=== PATIENT | female | born 1935 | race African-American/Black ===

== ENCOUNTER 2016-06-27 20:29 | Emergency (ER) | payer OTHER, BC ==
[~2016-06-27] VITALS: Ht 167.6 cm; Wt 76.2 kg
[2016-06-27] MEDS ORDERED: ZOFRAN ODT4 MG PO (22:21)
[2016-06-27] MEDS ORDERED: BENTYL 20 MG TA20 M1 PO (22:21)
[2016-06-27 22:32] VITALS: BP 108/70
== END 2016-06-27 22:34 | disposition home or self-care (01) ==
LOC: ER 20:29
DX: R10.9 Unspecified abdominal pain (principal); R19.7 Diarrhea, unspecified; F03.90 Unspecified dementia, unspecified severity, without behavioral disturbance, psychotic disturbance, mood disturbance, and anxiety; E11.9 Type 2 diabetes mellitus without complications; F32.9 Major depressive disorder, single episode, unspecified; G47.00 Insomnia, unspecified

== ENCOUNTER 2018-06-17 17:24 | Emergency (ER) | payer OTHER, BC ==
[~2018-06-17] VITALS: Ht 167.6 cm; Wt 74.8 kg
[~2018-06-17 17:24] MED LIST: BENTYL 20 MG TA20 M1 PO; ZOFRAN ODT4 MG PO
[2018-06-17 17:58] LABS: ABSOLUTE NEUTROPHILS 7.7 thou/uL (1.4-8.2); BASOPHILS 0.2 % (0.0-2.0); HEMATOCRIT 42.7 % (37.0-47.0); HEMOGLOBIN 14.1 gm/dL (12.0-15.0); LYMPHOCYTES 1.7 % (24.0-44.0); MCH 29.2 pg (26.0-34.0); MCHC 33.1 g/dL (28.0-37.0); MCV 88.4 fL (80.0-100.0); MONOCYTES 3.9 % (1.0-8.0); PLATELET COUNT 185 thou/uL (150-400); POLYS 94.2 % (36.0-66.0); RBC 4.83 mil/uL (4.20-5.00); RDW 13.6 % (10.5-14.5); WBC 8.2 thou/uL (4.0-11.0)
[2018-06-17 18:02] LABS: CALCIUM 9.8 mg/dL (8.5-10.1); CREATININE 1.1 mg/dL (0.6-1.0); POTASSIUM 3.9 mmol/L (3.5-5.1)
[2018-06-17 18:08] LABS: ALBUMIN 3.9 g/dL (3.4-5.0); TOTAL BILIRUBIN 0.5 mg/dL (<0.1-1.0); TOTAL PROTEIN 8.5 g/dL (6.4-8.2)
[2018-06-17 19:49] LABS: URINE BLOOD NEGATIVE (Negative); URINE CLARITY CLEAR; URINE COLOR YELLOW; URINE GLUCOSE-RANDOM* NEGATIVE (Negative); URINE KETONES 2+ (Negative); URINE LEUKOCYTES-REFLEX NEGATIVE (Negative); URINE NITRITE-REFLEX NEGATIVE (Negative); URINE PROTEIN (DIPSTICK) TRACE (Negative); URINE SPECIFIC GRAVITY >= 1.030 (1.005-1.035); URINE UROBILINOGEN 0.2 E.U./dl (0.2-1.0)
[2018-06-17 19:52] LABS: ICTOTEST (BILI CONFIRMATORY) Negative (Negative); URINE BILIRUBIN NEGATIVE (Negative)
[2018-06-17] MEDS ORDERED: ZOFRAN ODT4 MG PO (20:48)
[2018-06-17 21:05] VITALS: BP 133/59
== END 2018-06-17 21:05 | disposition home or self-care (01) ==
LOC: ER 17:24
PROVIDERS: Emergency Medicine; Student in an Organized Health Care Education/Training Program
DX: R19.7 Diarrhea, unspecified (principal); R11.2 Nausea with vomiting, unspecified; R10.33 Periumbilical pain; E11.9 Type 2 diabetes mellitus without complications; F32.9 Major depressive disorder, single episode, unspecified; G47.00 Insomnia, unspecified; F03.90 Unspecified dementia, unspecified severity, without behavioral disturbance, psychotic disturbance, mood disturbance, and anxiety

== ENCOUNTER 2019-03-23 20:50 | Emergency (ER) | payer OTHER, BC ==
[~2019-03-23] VITALS: Ht 167.6 cm; Wt 77.1 kg
[2019-03-23 21:30] LABS: ABSOLUTE NEUTROPHILS 2.6 thou/uL (1.4-8.2); BASOPHILS 0.7 % (0.0-2.0); EOSINOPHILS 2.1 % (0.0-3.0); HEMATOCRIT 36.6 % (37.0-47.0); LYMPHOCYTES 23.3 % (24.0-44.0); MCH 29.6 pg (26.0-34.0); MCHC 32.8 g/dL (28.0-37.0); MCV 90.4 fL (80.0-100.0); MONOCYTES 10.9 % (1.0-8.0); PLATELET COUNT 176 thou/uL (150-400); RBC 4.05 mil/uL (4.20-5.00); WBC 4.2 thou/uL (4.0-11.0)
[2019-03-23 21:46] LABS: ANION GAP 7 mmol/L (7-16); BUN 30 mg/dL (7-18); CALCIUM 9.8 mg/dL (8.5-10.1); CHLORIDE 104 mmol/L (98-107); CO2 29 mmol/L (21-32); CREATININE 1.5 mg/dL (0.6-1.0); GLUCOSE 133 mg/dL (74-106); POTASSIUM 4.3 mmol/L (3.5-5.1); SODIUM 140 mmol/L (136-145); TROPONIN-I <0.06 ng/mL (<0.06)
[2019-03-23 22:19] LABS: URINE BILIRUBIN NEGATIVE (Negative); URINE BLOOD NEGATIVE (Negative); URINE CLARITY CLEAR; URINE COLOR YELLOW; URINE GLUCOSE-RANDOM* NEGATIVE (Negative); URINE KETONES NEGATIVE (Negative); URINE LEUKOCYTES-REFLEX TRACE (Negative); URINE NITRITE-REFLEX NEGATIVE (Negative); URINE PROTEIN (DIPSTICK) NEGATIVE (Negative); URINE UROBILINOGEN 0.2 E.U./dl (0.2-1.0)
[2019-03-23 22:50] VITALS: BP 175/86
--- NOTE | 2019-03-24 08:10 | EKG ---
[place] [address] [facility] [place] [address] ELECTROCARDIOGRAM REPORT Name: COLLIN MUIR Room #: [facility]#: [id number] Admission: 03/23/19 Attend Phys: Discharge: 03/23/19 Date of : 33 Report #: [id number] THIS REPORT FOR: //name// [facility] ED Test Date: 2019-03-23 Test Time: 21:31:30 Pat Name: COLLIN MUIR Department: Room: Gender: F Waitress: DKENDRICK1 : 1935 Requested By: Vivek Horn Order Number: [id number] MD: Romario Cooper Measurements Intervals [place] Rate: 69 P: 35 WV: 214 QRS: -12 QRSD: 96 T: 52 QT: 452 QTc: 485 Interpretive Statements Sinus rhythm Borderline prolonged [place] interval No previous ECG available for comparison Electronically Signed On 03-24-2019 8:09:52 SALES PERSON by Romario Cooper [email or web address] <ELECTRONICALLY SIGNED> By: Romario Cooper MD, [facility] 03/24/19 [phone] Romario Cooper MD, FACC /EPI
== END 2019-03-23 22:50 | disposition home or self-care (01) ==
LOC: ER 20:50
PROVIDERS: Nurse Practitioner
DX: I10 Essential (primary) hypertension (principal); E11.9 Type 2 diabetes mellitus without complications; F03.90 Unspecified dementia, unspecified severity, without behavioral disturbance, psychotic disturbance, mood disturbance, and anxiety; F32.9 Major depressive disorder, single episode, unspecified; Z88.1 Allergy status to other antibiotic agents

== ENCOUNTER 2019-05-15 10:23 | Emergency (ER) | payer OTHER, BC ==
[~2019-05-15] VITALS: Ht 170.2 cm; Wt 80.7 kg
--- NOTE | ~2019-05-15 | EKG ---
[facility] [place] [address] ELECTROCARDIOGRAM REPORT Name: WOODCOLLIN Room #: [facility].#: [id number] Admission: 05/15/19 Attend Phys: Discharge: 05/15/19 Date of : 33 Report #: [id number] THIS REPORT FOR: cc: Addie Hunter MD, Nora P. MD Epiphany, Epiphany MD ~ THIS REPORT FOR: //name// [facility] ED Test Date: 2019-05-15 Test Time: 10:41:27 Pat Name: COLLIN MUIR Department: Room: Gender: F Director [employer]: KAMILA : 1935 Requested By: Ruth Gann Order Number: [id number] MD: Measurements Intervals [place] Rate: 54 P: 57 LA: 214 QRS: -5 QRSD: 104 T: 57 QT: 541 QTc: 513 Interpretive Statements Sinus rhythm Borderline prolonged [place] interval Prolonged QT interval No previous ECG available for comparison [email or web address] By: 1041 1041 Epiphany Epiphany, /EPI
[2019-05-15 11:58] LABS: ABSOLUTE NEUTROPHILS 3.1 thou/uL (1.4-8.2); BASOPHILS 0.6 % (0.0-2.0); EOSINOPHILS 1.8 % (0.0-3.0); HEMATOCRIT 37.2 % (37.0-47.0); HEMOGLOBIN 12.1 gm/dL (12.0-15.0); LYMPHOCYTES 18.4 % (24.0-44.0); MCH 29.6 pg (26.0-34.0); MCHC 32.6 g/dL (28.0-37.0); MCV 90.7 fL (80.0-100.0); MONOCYTES 11.3 % (1.0-8.0); PLATELET COUNT 187 thou/uL (150-400); POLYS 67.9 % (36.0-66.0); RDW 14.4 % (10.5-14.5); WBC 4.6 thou/uL (4.0-11.0)
[2019-05-15 12:10] LABS: CALCIUM 9.2 mg/dL (8.5-10.1); POTASSIUM 3.9 mmol/L (3.5-5.1)
[2019-05-15 12:16] LABS: ALBUMIN 3.4 g/dL (3.4-5.0); DIRECT BILIRUBIN 0.1 mg/dL (<0.1-0.2); MAGNESIUM 1.8 mg/dL (1.8-2.4); TOTAL BILIRUBIN 0.4 mg/dL (<0.1-1.0); TOTAL PROTEIN 7.3 g/dL (6.4-8.2)
[2019-05-15 13:35] LABS: URINE BILIRUBIN NEGATIVE (Negative); URINE BLOOD NEGATIVE (Negative); URINE CLARITY CLOUDY; URINE COLOR YELLOW; URINE GLUCOSE-RANDOM* NEGATIVE (Negative); URINE KETONES NEGATIVE (Negative); URINE LEUKOCYTES-REFLEX NEGATIVE (Negative); URINE NITRITE-REFLEX NEGATIVE (Negative); URINE PROTEIN (DIPSTICK) NEGATIVE (Negative); URINE UROBILINOGEN 0.2 E.U./dl (0.2-1.0)
[2019-05-15 15:31] VITALS: BP 150/78
== END 2019-05-15 15:35 | disposition home or self-care (01) ==
LOC: ER 10:23
PROVIDERS: Emergency Medicine
DX: R53.1 Weakness (principal); R51 Headache; E11.9 Type 2 diabetes mellitus without complications; F32.9 Major depressive disorder, single episode, unspecified; F03.90 Unspecified dementia, unspecified severity, without behavioral disturbance, psychotic disturbance, mood disturbance, and anxiety; Z88.1 Allergy status to other antibiotic agents

== ENCOUNTER 2019-07-23 21:00 | Emergency (ER) | payer OTHER, BC ==
[~2019-07-23] VITALS: Ht 170.2 cm; Wt 77.1 kg
[2019-07-23 21:50] LABS: HEMATOCRIT 34.7 % (37.0-47.0); HEMOGLOBIN 11.6 gm/dL (12.0-15.0); MCH 30.6 pg (26.0-34.0); MCHC 33.4 g/dL (28.0-37.0); MCV 91.6 fL (80.0-100.0); PLATELET COUNT 222 thou/uL (150-400); RBC 3.79 mil/uL (4.20-5.00); RDW 14.2 % (10.5-14.5); WBC 4.2 thou/uL (4.0-11.0)
[2019-07-23 21:57] LABS: CALCIUM 9.9 mg/dL (8.5-10.1); CREATININE 1.3 mg/dL (0.6-1.0); POTASSIUM 4.3 mmol/L (3.5-5.1)
[2019-07-23 22:36] LABS: APTT 27.2 Seconds (24.5-32.8); PROTIME 10.3 Seconds (9.3-11.4)
[2019-07-23 23:02] LABS: ABSOLUTE NEUTROPHILS 2.6 thou/uL (1.4-8.2); ATYPICAL LYMPHS 4 %
[2019-07-23 23:25] VITALS: BP 190/76
== END 2019-07-23 23:25 | disposition home or self-care (01) ==
LOC: ER 21:00
PROVIDERS: Emergency Medicine
DX: S40.021A Contusion of right upper arm, initial encounter (principal); E11.9 Type 2 diabetes mellitus without complications; Z88.1 Allergy status to other antibiotic agents; X58.XXXA Exposure to other specified factors, initial encounter; Y93.89 Activity, other specified; Y92.89 Other specified places as the place of occurrence of the external cause; Y99.8 Other external cause status

== ENCOUNTER 2020-01-05 12:52 | Emergency (ER) | payer OTHER, BC ==
[~2020-01-05] VITALS: Ht 167.6 cm; Wt 81.2 kg
[2020-01-05] MEDS ORDERED: DESYREL150 MG PO (13:12)
[2020-01-05] MEDS ORDERED: PRED FORTE 1% EY5 M1 OPHTHALMIC (13:13)
[2020-01-05] MEDS ORDERED: OMEPRAZOLE 20 M20 M1 PO (13:13)
[2020-01-05] MEDS ORDERED: MEMANTINE HCL5 MG PO (13:13)
[2020-01-05] MEDS ORDERED: ARICEPT10 MG PO (13:13)
[2020-01-05] MEDS ORDERED: MEVACOR10 MG PO (13:13)
[2020-01-05] MEDS ORDERED: METFORMIN HCL500 MG PO (13:13)
[2020-01-05] MEDS ORDERED: CELEXA 20 MG TA20 MG PO (13:13)
[2020-01-05 14:27] LABS: URINE BILIRUBIN NEGATIVE (Negative); URINE BLOOD NEGATIVE (Negative); URINE CLARITY SL CLOUDY; URINE COLOR YELLOW; URINE GLUCOSE-RANDOM* NEGATIVE (Negative); URINE KETONES NEGATIVE (Negative); URINE NITRITE-REFLEX NEGATIVE (Negative); URINE PROTEIN (DIPSTICK) NEGATIVE (Negative); URINE UROBILINOGEN 0.2 E.U./dl (0.2-1.0)
[2020-01-05 14:30] LABS: ABSOLUTE NEUTROPHILS 3.6 thou/uL (1.4-8.2); BASOPHILS 0.7 % (0.0-2.0); EOSINOPHILS 1.1 % (0.0-3.0); HEMATOCRIT 35.2 % (37.0-47.0); HEMOGLOBIN 11.7 gm/dL (12.0-15.0); LYMPHOCYTES 16.9 % (24.0-44.0); MCH 30.1 pg (26.0-34.0); MCHC 33.3 g/dL (28.0-37.0); MCV 90.5 fL (80.0-100.0); MONOCYTES 10.5 % (1.0-8.0); PLATELET COUNT 241 thou/uL (150-400); POLYS 70.8 % (36.0-66.0); RDW 13.7 % (10.5-14.5)
[2020-01-05 14:35] LABS: ANION GAP 7 mmol/L (7-16); BUN 22 mg/dL (7-18); CALCIUM 9.6 mg/dL (8.5-10.1); CHLORIDE 104 mmol/L (98-107); CO2 30 mmol/L (21-32); CREATININE 1.3 mg/dL (0.6-1.0); GLUCOSE 122 mg/dL (74-106); POTASSIUM 4.7 mmol/L (3.5-5.1); SODIUM 141 mmol/L (136-145)
[2020-01-05 14:35] LABS: URINE LEUKOCYTES-REFLEX 2+ (Negative)
[2020-01-05 14:41] LABS: ALBUMIN 3.5 g/dL (3.4-5.0); DIRECT BILIRUBIN < 0.1 mg/dL (<0.1-0.2); LIPASE 181 U/L (73-393); SGOT 18 U/L (15-37); SGPT 12 U/L (30-65); TOTAL BILIRUBIN 0.3 mg/dL (0.2-1.0); TOTAL PROTEIN 7.7 g/dL (6.4-8.2)
[2020-01-05 14:46] LABS: SQUAMOUS 4-10 Moderate /LPF (0-3)
[2020-01-05 14:48] LABS: CASTS None Seen /LPF (None Seen); CRYSTALS None Seen /LPF (None Seen); URINE RBC None Seen /HPF (0-2)
--- NOTE | 2020-01-05 15:19 | EKG ---
[facility] [place] [address] ELECTROCARDIOGRAM REPORT Name: COLLIN MUIR [facility]#: [id number] Admission: 01/05/20 Attend Phys: Discharge: Date of : 33 Report #: [id number] THIS REPORT FOR: cc: Addie Hunter MD, Nora P. MD Santiago, Patrick MD LOCATED [facility]IN [facility] ~ THIS REPORT FOR: //name// [facility] ED Test Date: 2020-01-05 Test Time: 13:26:12 Pat Name: COLLIN MUIR Department: Room: Gender: F Janitor Caretaker: [facility] : 1935 Requested By: Ruth Gann Order Number: [id number] MD: Ceferino Sood Measurements Intervals [place] Rate: 70 P: 59 ID: [id number] QRS: 3 QRSD: 99 T: 54 QT: 439 QTc: 474 Interpretive Statements Sinus rhythm Compared to ECG 05/15/2019 10:41:27 Prolonged QT interval no longer present Electronically Signed On 01-05-2020 15:19:43 CDT by Ceferino Sood [email or web address] <ELECTRONICALLY SIGNED> By: Ceferino Sood MD, FACC 01/05/20 1519 1326 1326 Ceferino Sood MD, [facility] /EPI
[2020-01-05] MEDS ORDERED: ZOFRAN ODT4 MG PO (16:31)
[2020-01-05] MEDS ORDERED: BACTRIM DS TAB1 EACH PO (16:31)
[2020-01-05 16:41] VITALS: BP 129/65
== END 2020-01-05 16:41 | disposition home or self-care (01) ==
LOC: ER 12:52
PROVIDERS: Emergency Medicine
DX: N39.0 Urinary tract infection, site not specified (principal); E11.9 Type 2 diabetes mellitus without complications; Z79.899 Other long term (current) drug therapy; Z88.1 Allergy status to other antibiotic agents